=== PATIENT | female | born 1985 | race Caucasian/White ===

== ENCOUNTER 2017-05-05 17:22 | Emergency (ER) | payer MEDICAID ==
[2017-05-05] MEDS: IBUPROFEN 600 MG TAB PO (18:30)
[2017-05-05] MEDS: ACETAMINOPHEN 500 MG TAB PO (18:30)
[2017-05-05] MEDS: SOD CHLORIDE 0.9% 500 ML IV (18:42)
[2017-05-05] MEDS: DEXAMETHASONE 10 MG/ML 1 ML INJ IV (18:48)
[2017-05-05] MEDS: CEFTRIAXONE 2 GM INJ IVPB (18:56)
[2017-05-05] MEDS: CEFTRIAXONE 2 GM/NS 50 ML IVPB (18:57)
== END 2017-05-05 19:35 | disposition home or self-care (01) ==
LOC: FTE 17:22
DX: H60.11 Cellulitis of right external ear (principal)
CPT/HCPCS: 96374; 96375; 99284-25